=== PATIENT | female | born 1950 | race Caucasian/White ===

== ENCOUNTER 2022-03-29 08:00 | Outpatient (CLI) | payer MEDICARE, OTHER ==
--- NOTE | 2022-03-29 09:29 | XRAY Report ---
PROCEDURE: Chest 2 View X-Ray INDICATIONS: COUGH TECHNIQUE: 2 view(s) of the chest. COMPARISON: None. FINDINGS: SUPPORT DEVICES: None. LUNGS/PLEURA: Coarsened interstitial markings. No focal consolidation, pleural effusion or space-occu pying pneumothorax. MEDIASTINUM: The cardiomediastinal silhouette is within normal limits. BONES/SOFT TISSUES: No acute abnormality. Elevation of the right diaphragm. IMPRESSION: 1.No acute cardiopulmonary abnormality. Reviewed by: Tyler Gallegos MD on 03/29/2022 9:27 AM PDT Approved by: Tyler Gallegos MD on 03/29/2022 9:27 AM PDT Station ID: [id number]
== END 2022-03-29 23:59 | disposition home or self-care (01) ==
LOC: DI.S 08:00
PROVIDERS: ATTEND Physician Assistant Medical
DX: R05.9 Cough, unspecified (principal)

== ENCOUNTER 2023-12-07 08:00 | Outpatient (CLI) | payer MEDICARE, OTHER ==
--- NOTE | 2023-12-07 14:21 | XRAY Report ---
PROCEDURE: Chest 2V INDICATIONS: SHORTNESS OF BREATH TECHNIQUE: 2 views of the chest were obtained. COMPARISON: None. FINDINGS: Surgical changes and devices: None. Lungs and pleura: No pleural effusions or pneumothorax. Lungs are clear. Mediastinum: Mediastinal contours appear normal. Heart size is normal. Bones and chest wall: No suspicious bony lesions. Overlying soft tissues appear unremarkable. IMPRESSION: Normal two-view chest x-ray Reviewed by: Kevyn Kwong MD on 12/07/2023 1:19 PM [facility] Approved by: Kevyn Kwong MD on 12/07/2023 1:19 PM [facility] Station ID: [id number]
== END 2023-12-07 23:59 | disposition home or self-care (01) ==
LOC: DI.S 08:00
PROVIDERS: ATTEND Physician Assistant Medical
DX: R06.02 Shortness of breath (principal)